=== PATIENT | male | born 1985 | race African-American/Black ===

== ENCOUNTER 2017-02-15 03:35 | Emergency (ER) | payer OTHER ==
[~2017-02-15] VITALS: Ht 172.7 cm; Wt 95.5 kg
[2017-02-15] MEDS ORDERED: LIDOCAINE HCL 1% 10 ML VIAL INJ ONE (07:00)
[2017-02-15 08:52] VITALS: BP 140/76
== END 2017-02-15 08:54 | disposition home or self-care (01) ==
LOC: EMS 03:36
DX: L02.11 Cutaneous abscess of neck (principal); F12.90 Cannabis use, unspecified, uncomplicated; Z88.0 Allergy status to penicillin
CPT/HCPCS: 10060; 99283; J3490

== ENCOUNTER 2017-02-16 17:11 | Emergency (ER) | payer OTHER ==
[~2017-02-16] VITALS: Ht 180.3 cm; Wt 127.3 kg
[2017-02-16 17:17] VITALS: BP 124/58
== END 2017-02-16 18:05 | disposition home or self-care (01) ==
LOC: EMS 17:12
DX: L02.11 Cutaneous abscess of neck (principal); F12.10 Cannabis abuse, uncomplicated; Z88.0 Allergy status to penicillin
CPT/HCPCS: 99281

== ENCOUNTER 2017-10-26 20:11 | Emergency (ER) | payer OTHER ==
[~2017-10-26] VITALS: Ht 180.3 cm; Wt 111.4 kg
[2017-10-26 20:58] VITALS: BP 155/98
[2017-10-26] MEDS ORDERED: KETOROLAC TROMETHAMINE 60 MG/2 ML VIAL IM ONE (22:00)
== END 2017-10-26 23:14 | disposition home or self-care (01) ==
LOC: EMS 20:13
DX: S90.32XA Contusion of left foot, initial encounter (principal); Z88.0 Allergy status to penicillin; F12.10 Cannabis abuse, uncomplicated; X58.XXXA Exposure to other specified factors, initial encounter; Y93.89 Activity, other specified; Y92.89 Other specified places as the place of occurrence of the external cause; Y99.8 Other external cause status
CPT/HCPCS: 73630; 96372; 99284; J1885

== ENCOUNTER 2025-04-16 11:02 | Emergency (ER) | payer MEDICAID, OTHER ==
[~2025-04-16] VITALS: Ht 180.3 cm; Wt 102.3 kg
[2025-04-16 11:09] VITALS: BP 145/95; PULSE 81; RESP 18; TEMP 98.6; O2SAT 97
[2025-04-16] MEDS: IBUPROFEN 600 MG TABLET PO ONE (11:25)
[2025-04-16] MEDS: ACETAMINOPHEN 500 MG TABLET PO ONE (11:26)
[2025-04-16] MEDS ORDERED: HYDR-4062 PO (12:20)
[2025-04-16] MEDS ORDERED: IBUP-1554 PO (12:20)
== END 2025-04-16 12:20 | disposition home or self-care (01) ==
LOC: EMS 11:02
DX: S80.02XA Contusion of left knee, initial encounter (principal); S80.01XA Contusion of right knee, initial encounter; F12.90 Cannabis use, unspecified, uncomplicated; Z88.0 Allergy status to penicillin; Z79.899 Other long term (current) drug therapy; Y04.0XXA Assault by unarmed brawl or fight, initial encounter; Y93.89 Activity, other specified; Y92.89 Other specified places as the place of occurrence of the external cause; Y99.8 Other external cause status
CPT/HCPCS: 29505; 99283